=== PATIENT | male | born 1975 | race Caucasian/White ===

== ENCOUNTER 2017-05-26 08:23 | Outpatient (CLI) | payer BC ==
--- NOTE | 2017-05-26 11:55 | Ultrasound Report ---
ULTRASOUND ABDOMEN COMPLETE INDICATION: Right and left upper abdominal pain. COMPARISON: None similar at this institution. FINDINGS: Abdominal sonography demonstrates diffuse increased hepatic echogenicity with grossly preserved contours. No definite focal suspicious lesions or biliary dilatation, to the extent assessed. No gallstones or pericholecystic fluid. Gallbladder wall thickness is 1.2 mm. Common bile duct is 3 mm. Homogenous spleen, approximately 7.6 cm in length. No ascites. Imaged pancreas grossly within normal limits. Unremarkable IVC. Nonaneurysmal abdominal aorta. No hydronephrosis with right kidney approximately 11.6 x 5.8 x 6.5 cm with cortical thickness of 1.2 cm while the left kidney is 10.8 x 4.7 x 5.8 cm with cortical thickness of 1.7 cm. Few additional images obtained in the region of pain below both ribs also demonstrate no definite abnormality. CONCLUSION: Fatty liver without acute abdominal sonographic abnormality, as described. Thank you for the opportunity to participate in this patient's care.
== END 2017-05-26 08:24 | disposition home or self-care (01) ==
LOC: US 08:23
PROVIDERS: ATTEND Family Medicine
DX: K76.0 Fatty (change of) liver, not elsewhere classified (principal); R94.5 Abnormal results of liver function studies
CPT/HCPCS: 76700

== ENCOUNTER 2018-03-27 13:11 | Outpatient (CLI) | payer BC ==
--- NOTE | 2018-03-27 15:45 | Vascular Lab Report ---
FINAL REPORT EXAM: VL VENOUS DUPLEX LE BILAT HISTORY: PAIN AND SWELLING TECHNIQUE: Sewell scale with color flow and spectral waveform Doppler imaging. PRIORS: None. FINDINGS: There is no evidence of deep venous thrombosis in either lower extremity. Flow is demonstrated by color flow and spectral waveform Doppler imaging. There is appropriate augmentation and wall compression. IMPRESSION: There is no evidence for DVT in right or left lower extremity.
== END 2018-03-27 13:12 | disposition home or self-care (01) ==
LOC: VAS 13:11
PROVIDERS: ATTEND Family Medicine
DX: R22.43 Localized swelling, mass and lump, lower limb, bilateral (principal)
CPT/HCPCS: 93970